=== PATIENT | male | born 1985 | race Caucasian/White ===

== ENCOUNTER 2019-06-02 13:44 | Emergency (ER) | payer SELFPAY ==
[2019-06-02 13:45] VITALS: BP 112/68; PULSE 77; RESP 16; TEMP 36.8; O2SAT 98; BMI 20.7
--- NOTE | 2019-06-02 13:58 | RAD_ITS ---
STUDY: X-RAY - LEFT HAND REASON FOR EXAM: Male, 34 years old. Left hand pain, infection. TECHNIQUE: 3 view(s) of the hand. COMPARISON: None. FINDINGS: Normal osseous structures. There appears to be mild dorsal lateral hand soft tissue swelling. Clinically correlate. RAD/Hand Min 3 Views IMPRESSION: No acute osseous process. Suspected dorsal lateral hand soft tissue swelling. No deep soft tissue gas or radiodense foreign body. No evidence of osteomyelitis. Electronically Signed: Anibal Up MD at 14:20 EDT Tel , Service support ,
--- NOTE | 2019-06-02 15:58 | ED.VIS.UPPEX ---
History of Present Illness Chief Complaint: Upper Extremity Injury Narrative: Patient presenting secondary to pain in his left index finger. Patient reports over the course of the last couple weeks he has had increasing pain and swelling in the tip of his left index finger. He reports that this was associated with a couple of blunt injuries, and now was associated with throbbing continuous pain that is worse with any sort of palpation. He denies any presence of fevers. Pain is been refractory to treatment with ibuprofen. Review of systems otherwise negative. Past Medical History - Allergies and Home Meds Allergies/Adverse Reactions: Allergies Sulfa (Sulfonamide Antibiotics) Allergy (Verified 06/02/19 13:47) Itching Primary Care Physician: Porfirio Rod MD [STAFF PHYSICIAN] - As soon as possible Smoking Status: Current every day smoker Review of Systems All systems negative except as indicated General: Denies: Fever Musculoskeletal: Reports: - - Left index finger pain Hematologic: Denies: Easy bruising, Easy bleeding Physical Exam Vital Signs/Narrative: Vital Signs Temp Pulse Resp BP Pulse Ox 06/02/19 13:45 98.3 F 77 16 112/68 98 Left Finger: - - Exam of the patient's left hand shows left index finger with some evidence of swelling of the pulp of the distal phalanx. There is fluctuance over the very tip of the finger. No evidence of overlying cellulitis or lymphangitic streaking. Normal range of motion of the finger. Diagnostic/Tx/Re-eval - Medical Decision Making Patient presented secondary to swelling of the finger. Physical exam seem consistent with a felon. X-ray was obtained which was negative. Patient's felon was incised and drained as noted in the procedure note. Patient will follow-up with plastic surgery. Patient was placed on clindamycin due to a sulfa allergy. Procedures Procedure(s): Patient's finger was anesthetized using 5 cc of bupivacaine via a digital block. Good anesthesia was obtained. Finger was then prepped with Betadine, and was draped in a sterile fashion. Sterile gloves were utilized. An 11 blade was used to incise the very tip of the finger, and some purulence was expressed. Then the ulnar side of the index finger was incised, and blunt dissection was used to dissect across the pulp of the finger. The incisions were irrigated copiously. Packing was placed in the tip of the finger. Nonstick Adaptic was placed over top of the tip of the finger, and then a bulky absorbent dressing was placed over top. Patient tolerated this well. Disposition: Home ED Disposition - Plan for ED Patient: Disposition: Home or Assisted Living Diagnosis: Felon of finger of left hand Instructions: ABSCESS, Incision and Drainage Prescriptions: Clindamycin [Cleocin] 300 mg PO 4X/DAY #80 cap Prescription Printed Referrals: Porfirio Rod MD [STAFF PHYSICIAN] - As soon as possible
[2019-06-02] MEDS: Clindamycin HCl 150 MG Capsule 300 MG PO (16:23)
[2019-06-02] MEDS: Bupivacaine Mpf 0.5% 30 ML VIAL INFILT (16:24)
[2019-06-02 16:27] VITALS: BP 121/71; PULSE 81; RESP 16; O2SAT 99
== END 2019-06-02 16:30 | disposition home or self-care (01) ==
PROVIDERS: Emergency Provider Emergency Medicine
DX: L03.012 Cellulitis of left finger (principal); Z88.2 Allergy status to sulfonamides; F17.200 Nicotine dependence, unspecified, uncomplicated
CPT/HCPCS: 26011; 73130; 99283

== ENCOUNTER 2022-06-20 07:02 | Emergency (ER) | payer SELFPAY ==
[2022-06-20 07:03] VITALS: BP 117/66; PULSE 83; RESP 16; TEMP 36.9; O2SAT 99
--- NOTE | 2022-06-20 07:10 | RAD_ITS ---
EXAM: XR CHEST, 1 VIEW CLINICAL INDICATION: COLD SYMPTOMS TECHNIQUE: Frontal view of the chest. This report was created using [employer] report generation technology. COMPARISON: None. FINDINGS: LUNGS AND PLEURAL SPACES: Unremarkable with the exception of incidentally noted azygos lobe at the superior medial right lung. No consolidation or edema. No pneumothorax. No effusion. HEART: Unremarkable. Cardiac silhouette not enlarged. MEDIASTINUM: Central airways and mediastinal contour are unremarkable. BONES/JOINTS: Unremarkable. SOFT TISSUES: Unremarkable. RAD/Chest 1 View (Portable) IMPRESSION: No radiographic evidence of acute cardiopulmonary disease. Electronically Signed: Rachel Tanner MD at 7:29 EDT ,
--- NOTE | 2022-06-20 07:23 | EX.ED.DYSGE1 ---
HPI History of Present Illness Chief Complaint: Cold Sx Informant: patient Narrative Narrative: Patient is a 37-year-old male that denies any past medical history presenting with COVID-like symptoms and concern for COVID infection. Patient was at a music festival this past weekend and last night developed sweats, nausea, myalgias, headache, restlessness, vomiting and diarrhea. Has been drinking fluids at home. Did not take anything [id number] for symptoms. Is concerned he might have COVID and came to the emergency room for further evaluation. Also notes since being at a music festival and on his feet for 3 days his ankles have been sore. He is worried he is may be has poor circulation in his feet. PFSH PFSH Home Medications clindamycin HCl 150 mg capsule 300 mg PO 4X/DAY #80 caps 06/02/19 [Rx Last Taken Unknown] cephalexin 500 mg capsule (Keflex) 500 mg PO .qid #40 caps 06/05/19 [Rx Last Taken Unknown] ibuprofen 600 mg tablet 600 mg PO Q6H PRN PRN fever or pain #20 tabs 06/20/22 [Rx Last Taken Unknown] ondansetron 4 mg disintegrating tablet 4 mg PO Q6H PRN nausea and vomiting #14 tabs 06/20/22 [Rx Last Taken Unknown] Allergy/AdvReac Type Severity Reaction Status Date / Time Sulfa (Sulfonamide Allergy Itching Verified 06/02/19 13:47 Antibiotics) Social History Smoking Status: Current every day smoker tobacco type: cigarettes ROS ROS ED Constitutional Constitutional ED: Reports chills and sweats; Denies fever(s) Eyes Eyes: Denies blurry vision ENT ENT ED: Reports ear pain, sore throat and other Details: nasal congestion ; Denies rhinorrhea Cardiovascular Cardiovascular: Denies chest pain or palpitations Respiratory/Chest Respiratory/Chest: Reports cough; Denies dyspnea Gastrointestinal Gastrointestinal: Reports diarrhea, nausea and vomiting; Denies abdominal pain Genitourinary Genitourinary ED: Denies dysuria or hematuria Musculoskeletal Musculoskeletal: Reports arthralgias and myalgias; Denies neck pain Integumentary Denies rash Neurologic Neurologic: Reports headache(s); Denies paresthesias or weakness Psychiatric Psychiatric: Denies anxiety EXAM Physical Exam Const Vital Signs: 06/20/22 07:03 06/20/22 07:31 Temperature 98.5 F Temperature Source Oral Pulse Rate 83 Respiratory Rate 16 Respiratory Effort Normal Blood Pressure 117/66 Blood Pressure Mean 83 Pulse Ox 99 Oxygen Delivery Method Room Air Room Air Positive well nourished and well developed General Appearance ED: well developed and NAD HEENT Reports TM's clear and moist mucous membranes HEENT Narrative: Normal oropharynx. Uvula midline. Normal nasal mucosa Tympanic Membrane ED: Yes TM's clear Eyes PERRL and EOMs intact bilaterally Neck no lymphadenopathy and supple Neck Narrative: No meningeal signs Chest Wall inspection of chest normal Resp normal respiratory effort Resp Narrative: Scattered rhonchi in the left upper lobe Cardio regular rate, regular rhythm and no murmurs Cardio Narrative: 2+ radial DP pulses. Brisk capillary refill of the toes. GI normal to inspection, nondistended, normoactive bowel sounds and non-tender Back/Spine no CVA tenderness Extremity normal to inspection General Extremety ED: Negative for edema or tenderness General Extremity: Negative for edema Neuro oriented x3 Neuro Narrative: No focal deficits appreciated Motor Exam: strength 5/5 throughout Psych mental status grossly normal Skin no rashes or lesions noted and no wounds Skin Narrative: Peeling skin on the forehead and scalp consistent with a healing sunburn General Skin Exam: Negative for jaundice MDM MDM MDM Narrative Medical decision making narrative: Patient evaluated for 1 day of COVID-like symptoms. He has had myalgias, chills, headache, cough, nausea and vomiting. He is hemodynamically stable. Overall he looks like he does not feel good but is well-appearing. No meningeal signs. Abdomen is soft and nontender. Does not have associate abdominal pain. I do not think further blood work or work-up is indicated. Chest x-ray interpreted by myself as well as radiology is negative for any acute process. Rapid COVID is negative. Patient counseled that given the short onset of his symptoms he could have a false negative. Is encouraged to take a home test in 2 to 3 days if continuing to be symptomatic. Patient is not a candidate for Paxlovid so I do not think a PCR is indicated at this time. He is given Zofran and Tylenol in the emergency room. Given a prescription for Motrin 600 mg as well as Zofran. Counseled on fluid intake. Given a work note. Discharged home in stable condition. Radiography Diagnostic Testing: Clinical Impression(s) from Imaging Studies Chest X-Ray 06/20/22 07:10 IMPRESSION: No radiographic evidence of acute cardiopulmonary disease. Electronically Signed: Rachel Tanner MD at 7:29 EDT Reading Location ID and State: [facility] / [place] Tel , Service support , Discharge Plan Triage Chief Complaint: Cold Sx ED Provider: Cherelle Caldera Dx/Rx/DC Orders Clinical Impression: Viral illness, Encounter for screening for COVID-19 Instructions: ED Viral Syndrome (Adult) Prescriptions: New ondansetron 4 mg tablet,disintegrating 4 mg PO Q6H PRN (Reason: nausea and vomiting) Qty: 14 0RF ibuprofen 600 mg tablet 600 mg PO Q6H PRN PRN (Reason: fever or pain) Qty: 20 0RF No Action cephalexin [Keflex] 500 mg capsule 500 mg PO .qid Qty: 40 0RF clindamycin HCl 150 MG capsule 300 mg PO 4X/DAY Qty: 80 0RF Primary Care Provider: Care Physician,No Primary Referrals: Libia Deluna MD [STAFF PHYSICIAN] - Care Physician,No Primary [Primary Care Provider] - Activity Restrictions/Additional Instructions: Your COVID test was negative. Given the sudden onset of symptoms is possible this is a false negative. If you still have symptoms and 2 to 3 days take a repeat home test. Return if you have further concerns of dehydration or failure getting worse. Try to drink lots of fluids and rest. Disposition Disposition: Home, Self Care
[2022-06-20] MEDS: Acetaminophen 325 MG Tablet 650 MG PO (07:30)
[2022-06-20] MEDS: Ondansetron ODT 4 MG Tablet PO (07:30)
[2022-06-20 07:31] VITALS: O2SAT 98
[2022-06-20 07:51] VITALS: BP 109/72; PULSE 66; RESP 15; O2SAT 99
== END 2022-06-20 07:52 | disposition home or self-care (01) ==
PROVIDERS: Emergency Provider Emergency Medicine; Visit Provider Emergency Medicine
DX: B34.9 Viral infection, unspecified (principal); R51.9 Headache, unspecified; F17.210 Nicotine dependence, cigarettes, uncomplicated; R68.83 Chills (without fever); M79.10 Myalgia, unspecified site; R05.9 Cough, unspecified
CPT/HCPCS: 71045; 87811; 99283

== ENCOUNTER 2025-07-15 20:47 | Emergency (ER) | payer BC, SELFPAY ==
[2025-07-15 20:48] VITALS: BP 144/100; PULSE 70; RESP 16; TEMP 36.9; O2SAT 100; BMI 21.0
--- NOTE | 2025-07-15 21:02 | CT_ITS ---
PROCEDURE: CTA ABD/PELVIS W/WO CONTRAST 07/15/2025 REASON FOR EXAM: ABDOMINAL PAIN, RECTAL BLEEDING TECHNIQUE: CTA ABD/PELVIS W/WO CONTRAST Multiplanar Sagittal and Coronal images were obtained. CONTRAST: Isovue 370 VOLUME: 100 mL One or more dose reduction techniques were used (e.g., Automated exposure control, adjustment of the mA and/or kV according to patient size, use of iterative reconstruction technique). RADIATION DOSE SUMMARY: CTDlvol: 37 mGy DLP: 385 mGycm COMPARISON: No FINDINGS: Dependent atelectasis. Normal heart size. Hepatomegaly, possible medical liver disease. Possible portal venous hypertension. Normal gallbladder, pancreas, spleen, adrenal glands, kidneys. Hydronephrosis. Normal bladder. Normal prostate. No retroperitoneal or pelvic adenopathy. Nondistended bowel. Normal appendix. Multiple jejunal loops show possible true wall thickening. Distal small bowel hypomotility. No acute large bowel findings. No acute abdominal wall findings. L5-S1 degeneration. The aortoiliac system is unremarkable. There is mild extrinsic compression, of proximal celiac artery, series 602, image 25, with poststenotic dilatation. No aneurysm, dissection, or high-grade stenosis. CT/CTA Abd/Pelvis W/WO Contrast IMPRESSION: Medical liver disease. No acute vascular pathology. Possible median arcuate ligament syndrome. Advise correlation. Possible enteritis such as secondary to infection. Reading Location: [place] [id number]
--- NOTE | 2025-07-15 21:12 | EX.ED.DYSGE1 ---
HPI <JOANNA Desir - Last Filed: 07/15/25 21:37> History of Present Illness Chief Complaint: GI Bleed Narrative Narrative: 40-year-old male with no past medical history presents with a GI bleed. He states on 07/06 (about 9 days ago) he had a bowel movement and there was dark red blood in the toilet bowl and when he wiped it looked black. Since then he has had abdominal bloating which feels worse on the left. He states is not overt pain but more feeling of gas that he needs to burp or fart. He tried to make lifestyle changes by stopping ibuprofen which he uses often for poor dentition. Today he had 3 episodes of diarrhea which looked brown but there was bright red blood in the toilet bowl. He denies fever, chills, nausea or vomiting. No history of GI bleed. He is not on blood thinners. He takes no medications. He smokes weed and drinks half 1/5 of liquor daily. PFSH <JOANNA Desir - Last Filed: 07/15/25 21:37> [facility] Home Medications ?Medication ?Instructions ?Recorded ?Last Taken ?Type clindamycin HCl 150 mg capsule 300 mg (2 x 150 mg) PO 4X/DAY #80 06/02/19 Unknown Rx caps cephalexin 500 mg capsule (Keflex) 500 mg PO .qid #40 caps 06/05/19 Unknown Rx ibuprofen 600 mg tablet 600 mg PO Q6H PRN PRN fever or 06/20/22 Unknown Rx pain #20 tabs ondansetron 4 mg disintegrating 4 mg PO Q6H PRN nausea and 06/20/22 Unknown Rx tablet vomiting #14 tabs pantoprazole 40 mg tablet,delayed 40 mg PO DAILY #30 tabs 07/15/25 Unknown Rx release Allergy/AdvReac Type Severity Reaction Status Date / Time Sulfa (Sulfonamide Allergy Itching Verified 07/15/25 20:48 Antibiotics) Family History (Updated 07/15/25 @ 21:22 by Carson Tanner) Other Cancer Surgical History (Updated 07/15/25 @ 21:21 by Carson Tanner) History of placement of ear tubes Surgical History no surgical history Social History Smoking Status: Current every day smoker tobacco type: e-cigarettes ROS <JOANNA Desir - Last Filed: 07/15/25 21:37> ROS ED ROS Narrative Constitutional: Negative for fever, chills, malaise. GI: Positive for abdominal pain, diarrhea, rectal bleeding. Negative for nausea, vomiting. : Negative for dysuria. EXAM <JOANNA Desir - Last Filed: 07/15/25 21:37> Physical Exam Narrative Exam Narrative: CONST: Patient sitting in no acute distress. EYES: Normal inspection. NECK: Normal inspection. RESP: No respiratory distress, CTAB. CVS: Regular rate and rhythm, no murmur, no gallop. ABD: Soft with mild left mid and lower abdominal discomfort, mild distention, no guarding or rebound. SYED: No external hemorrhoids or fissures noted. SKIN: Color normal, no rash, warm, dry, intact. EXTREMITIES: Normal appearance, no pedal edema. NEURO: Alert and answering questions appropriately. PSYCH: Normal affect. Const Vital Signs: 07/15/25 20:48 07/15/25 22:54 Temperature 98.5 F 98.5 F Temperature Source Oral Pulse Rate 70 70 Respiratory Rate 16 16 Blood Pressure 144/100 H 144/100 H Blood Pressure Mean 114 114 Pulse Ox 100 100 <Dr. Jimmy Duncan, DO - Last Filed: 07/16/25 00:23> Physical Exam Const Vital Signs: 07/15/25 20:48 07/15/25 22:54 Temperature 98.5 F 98.5 F Temperature Source Oral Pulse Rate 70 70 Respiratory Rate 16 16 Blood Pressure 144/100 H 144/100 H Blood Pressure Mean 114 114 Pulse Ox 100 100 MDM <JOANNA Desir - Last Filed: 07/15/25 21:37> [facility] Narrative Medical decision making narrative: -year-old male presents with recent abdominal bloating and bright red rectal bleeding. 1 episode of melena 9 days ago. He has discontinued NSAIDs but still drinks liquor daily. No history of GI bleed. No blood thinners. He is awake alert no distress. Vital stable. Normal cardiopulmonary Dhruv. Abdomen soft with mild left mid to lower abdominal tenderness but no peritoneal signs. On rectal exam he has no fissures or external hemorrhoids. I did not do a Hemoccult since he is reporting bright red blood. He was given IV Protonix bolus while blood work and CT scan are obtained. Lab Data Labs: Laboratory Results - last 24 hr 07/15/25 21:17 WBC 7.1 RBC 3.79 L Hgb 12.6 L Hct 36.6 L MCV 96.6 H MCH 33.2 H MCHC 34.4 RDW Std Deviation 45.4 H RDW Coeff of Rupert 12.8 Plt Count 186 MPV 10.8 Immature Gran % (Auto) 0.100 Neut % (Auto) 56.7 Lymph % (Auto) 30.1 [place] % (Auto) 9.6 Eos % (Auto) 2.6 Baso % (Auto) 0.9 Absolute Neuts (auto) 4.0 Absolute Lymphs (auto) 2.12 Nucleated RBC % 0 Sodium 143 Potassium 3.8 Chloride 105 Carbon Dioxide 24.4 Anion Gap 13 BUN 13 Creatinine 0.85 Estim Creat Clear Calc 108.73 Est GFR (MDRD) Non-Af 113 BUN/Creatinine Ratio 15.8 Glucose 91 Calcium 9.3 Total Bilirubin 0.25 AST 22 ALT 15 Alkaline Phosphatase 65 Total Protein 6.9 Albumin 4.4 Globulin 2.5 Albumin/Globulin Ratio 1.7 Radiography Diagnostic Testing: Clinical Impression(s) from Imaging Studies Abdomen/Pelvis CTA 07/15/25 21:02 IMPRESSION: Medical liver disease. No acute vascular pathology. Possible median arcuate ligament syndrome. Advise correlation. Possible enteritis such as secondary to infection. Reading Location: [facility] <Dr. Jimmy Duncan, DO - Last Filed: 07/16/25 00:23> [facility] Lab Data Labs: Laboratory Results - last 24 hr 07/15/25 21:17 WBC 7.1 RBC 3.79 L Hgb 12.6 L Hct 36.6 L MCV 96.6 H MCH 33.2 H MCHC 34.4 RDW Std Deviation 45.4 H RDW Coeff of Rupert 12.8 Plt Count 186 MPV 10.8 Immature Gran % (Auto) 0.100 Neut % (Auto) 56.7 Lymph % (Auto) 30.1 [place] % (Auto) 9.6 Eos % (Auto) 2.6 Baso % (Auto) 0.9 Absolute Neuts (auto) 4.0 Absolute Lymphs (auto) 2.12 Nucleated RBC % 0 Sodium 143 Potassium 3.8 Chloride 105 Carbon Dioxide 24.4 Anion Gap 13 BUN 13 Creatinine 0.85 Estim Creat Clear Calc 108.73 Est GFR (MDRD) Non-Af 113 BUN/Creatinine Ratio 15.8 Glucose 91 Calcium 9.3 Total Bilirubin 0.25 AST 22 ALT 15 Alkaline Phosphatase 65 Total Protein 6.9 Albumin 4.4 Globulin 2.5 Albumin/Globulin Ratio 1.7 Radiography Diagnostic Testing: Clinical Impression(s) from Imaging Studies Abdomen/Pelvis CTA 07/15/25 21:02 IMPRESSION: Medical liver disease. No acute vascular pathology. Possible median arcuate ligament syndrome. Advise correlation. Possible enteritis such as secondary to infection. Reading Location: [facility] Treatment and Re-Evaluation :: Attending note: I have personally performed a face to face assessment of the patient and have reviewed the GUILLERMO note. I personally made/approved the management plan and take responsibility for the patient management. I performed a substantive portion of the visit including all aspects of the following. My gonzalez findings include: Daily alcohol use for past 2 years. 9 days ago had black stools for 1 day. 2 days ago black and red stools. Today had 3 diarrhea loose stools with bright red blood no clots. Since abdominal pain. No fevers. No vomiting. No abdominal surgeries. No history of upper or lower endoscopies. Exam nonsurgical abdomen. No clinical pallor. Labs were ordered including CT angiogram. Hemoglobin trend 12.6. Normal bilirubin. Electrolytes were normal. Creatinine 0.85. CT angiogram hepatomegaly with signs of portal hypertension. No varices no active bleeding. He had no bloody stools in the ED. Given Protonix he will be continued on a PPI. He is referred to GI. Return precaution discussed. All questions were answered. Discharge Plan Triage Chief Complaint: GI Bleed ED Midlevel Provider: Leela Woodruff ED Provider: Jimmy Duncan Dx/Rx/DC Orders Clinical Impression: Rectal bleed, Alcohol dependence, Gastritis Instructions: Rectal Bleeding Tx, Alcoholism Resources, ED Gastritis (Adult) Prescriptions: New pantoprazole 40 mg tablet,delayed release (DR/EC) 40 mg PO DAILY Qty: 30 0RF No Action cephalexin [Keflex] 500 mg capsule 500 mg PO .qid Qty: 40 0RF clindamycin HCl 150 MG capsule 300 mg PO 4X/DAY Qty: 80 0RF ondansetron 4 mg tablet,disintegrating 4 mg PO Q6H PRN (Reason: nausea and vomiting) Qty: 14 0RF ibuprofen 600 mg tablet 600 mg PO Q6H PRN PRN (Reason: fever or pain) Qty: 20 0RF Primary Care Provider: Care Physician,No Primary Referrals: Friend,Gary, [Med Staff - Active Staff] - 1 Week Care Physician,No Primary [Primary Care Provider] - Activity Restrictions/Additional Instructions: Your CT angiogram no signs of active bleeding. You have a large liver. You have signs of portal hypertension. Hemoglobin is 12.6. Take pantoprazole as prescribed. Try to avoid alcohol use. Continue to avoid ibuprofen use. Follow-up with Dr. Redding. Print Language: Kosovan Disposition Disposition: Home, Self Care Discharge Date/Time: 07/15/25 22:54
--- NOTE | 2025-07-15 21:31 | ED.RN ---
Pt reports not taking any medications
[2025-07-15 21:44] LABS: Hematocrit 36.6 % (40-54); Hemoglobin 12.6 g/dL (13.0-16.5); Immature Granulocytes Count 0.010 X10^3/uL (0.0-0.0); Mean Corp Hgb Conc 34.4 g/dL (32-36); Mean Corpuscular Volume 96.6 fL (80-94); Mean Platelet Vol. 10.8 fl (6.2-12.0); NRBC Flagged by Analyzer 0 % (0-5); Platelet Count 186 K/mm3 (150-450); RBC Distribution Width CV 12.8 % (11.6-14.6); RBC Distribution Width SD 45.4 fl (35.1-43.9); Red Blood Count 3.79 M/mm3 (4.6-6.2); White Blood Count 7.1 K/mm3 (4.4-11.0)
--- OUTSIDE RECORDS SUMMARY | 2025-07-15 21:51 | XMS RPT_ITS | CCD ---
Author Organization [facility] [employer]ACH [employer] EDUCATION [employer] WORK[employer] [facility] Allergies Allergy Classification Reported Allergen(s) Allergy Type Date of Onset Reaction(s) Facility (1 source) Sulfonamides (Antibiotic) Allergy to substance 06-02-2019 Itching [facility] Work Phone: Medications Current Medications Medication Drug Class(es) Dates Sig (Normalized) Sig (Original) cephalexin 500 mg oral capsule (1 source) Cephalosporin Antibacterial Start: 06-05-2019 take 1 capsule by mouth four times daily Cephalexin (Keflex) 500 mg capsule Active 500 MG PO .qid 40 June 05, 2019 12:00am clindamycin 150 mg oral capsule (1 source) Lincosamide Antibacterial Start: 06-02-2019 take 300 mg by mouth four times daily Clindamycin Hcl Active 300 MG PO 4 TIMES DAILY June 02, 2019 12:00am ibuprofen 600 mg oral tablet (1 source) Nonsteroidal Anti-inflammatory Drug Start: 06-20-2022 take 600 mg by mouth every six hours as needed Ibuprofen Active 600 MG PO EVERY 6 HOURS NEEDED June 20, 2022 12:00am ondansetron 4 mg disintegrating oral tablet (1 source) Serotonin-3 Receptor Antagonist Start: 06-20-2022 take 4 mg by mouth every six hours Ondansetron Active 4 MG PO EVERY 6 HOURS June 20, 2022 12:00am Problems Problem Classification Problem Date Documented Da te Episodic/Chronic Immunizations and screening for infectious disease (1 source) Patient encounter status; Translations: [Encounter for screening for COVID-19] Episodic Skin and subcutaneous tissue infections (2 sources) Infection of finger; Translations: [Cellulitis of left finger] Episodic Viral infection (1 source) Viral disease; Translations: [Viral infection, unspecified] Episodic Results Test Name Value Interpretation Reference Range Facil ity COVID 19 AG RAPID (MOISES Walton)on 06-20-2022 SARS-CoV-2 (COVID-19) RNA STALIN+probe Ql (Unsp spec) *Negative results from patients with symptom onset beyond five days should be treated as presumptive and confirmed by a molecular assay if clinically necessary. Negative results should not be used as the sole basis for treatment or for patient management. SARS-CoV-2 Ag Resp Ql IA.rapid *Positive results do not differentiate between SARS-CoV and SARS-CoV-2. If differentiation of the specific SARS virus is desired an additional sample and an additional order is required. SARS-CoV-2 Ag Resp Ql IA.rapid * This test has not been FDA cleared or approved; the test has been authorized by FDA under an Emergency Use Authorization (EAU) for use by laboratories certified under CLIA that meet the requirements to perform moderate, high, or waived complexity tests. SARS-CoV-2 Ag Resp Ql IA.rapid Normal Reference Range: Negative SARS-CoV-2 (COVID 19) Negative RAPID METHOD [facility] COVID19 Ag Card Normal [facility] Comment on above: Performed By: #### M [id number] #### [facility] [address] [place], [address] Chest 1 View (Portable)on Chest 1 View (Portable) [facility] Imaging Services [address] [place] [address] Chest 1 View (Portable) MR#: [id number] Acct: [id number] Name: MAG LYMAN Star Rep #: [id number] : 1985 M 37 From: Rachel Tanner MD PCP: Care Physician,No Primary Status: PRE ER Study: Chest 1 View (Portable) Date of Exam: 06/20/22 Exam# [id number] Ordering Dr: Provider,Ed P. EXAM: XR CHEST, 1 VIEW CLINICAL INDICATION: COLD SYMPTOMS TECHNIQUE: Frontal view of the chest. This report was created using [employer] (?) report generation technology. COMPARISON: None. FINDINGS: LUNGS AND PLEURAL SPACES: Unremarkable with the exception of incidentally noted azygos lobe at the superior medial right lung. No consolidation or edema. No pneumothorax. No effusion. HEART: Unremarkable. Cardiac silhouette not enlarged. MEDIASTINUM: Central airways and mediastinal contour are unremarkable. BONES/JOINTS: Unremarkable. SOFT TISSUES: Unremarkable. RAD/Chest 1 View (Portable) IMPRESSION: No radiographic evidence of acute cardiopulmonary disease. Electronically Signed: Rachel Tanner MD at 7:29 EDT , CC: ED PHYSICIAN PROVIDER; No Primary Care Physician Last Putter Away: Signed Normal [facility] Emergency Department Summary on 06-20-2022 Emergency Department Summary [facility] Medical Records Department [address] [place] [address] Emergency Department Summary 06/20/22 MR#: [id number] Acct: [id number] Name: MAG LYMAN Rep #: [id number] : 1985 37 From: Cherelle Caldera DO PCP: Care Physician,No Primary Status:REG ER Location: ED HPI History of Present Illness Chief Complaint: Cold Sx Informant: patient Narrative Narrative: Patient is a 37-year-old male that denies any past medical history presenting with COVID-like symptoms and concern for COVID infection. Patient was at a music festival this past weekend and last night developed sweats, nausea, myalgias, headache, restlessness, vomiting and diarrhea. Has been drinking fluids at home. Did not take anything [id number] for symptoms. Is concerned he might have COVID and came to the emergency room for further evaluation. Also notes since being at a music festival and on his feet for 3 days his ankles have been sore. He is worried he is may be has poor circulation in his feet. PFSH PFS Home Medications clindamycin HCl 150 mg capsule 300 mg PO 4X/DAY #80 caps 06/02/19 [Rx Last Taken Unknown] cephalexin 500 mg capsule (Keflex) 500 mg PO .qid #40 caps 06/05/19 [Rx Last Taken Unknown] ibuprofen 600 mg tablet 600 mg PO Q6H PRN PRN fever or pain #20 tabs 06/20/22 [Rx Last Taken Unknown] ondansetron 4 mg disintegrating tablet 4 mg PO Q6H PRN nausea and vomiting #14 tabs 06/20/22 [Rx Last Taken Unknown] Allergy/AdvReac Type Severity Reaction Status Date / Time Sulfa (Sulfonamide Allergy Itching Verified 06/02/19 13:47 Antibiotics) Social History Smoking Status: Current every day smoker tobacco type: cigarettes ROS ROS ED Constitutional Constitutional ED: Reports chills and sweats; Denies fever(s) Eyes Eyes: Denies blurry vision ENT ENT ED: Reports ear pain, sore throat and other Details: nasal congestion ; Denies rhinorrhea Cardiovascular Cardiovascular: Denies chest pain or palpitations Respiratory/Chest Respiratory/Chest: Reports cough; Denies dyspnea Gastrointestinal Gastrointestinal: Reports diarrhea, nausea and vomiting; Denies abdominal pain Genitourinary Genitourinary ED: Denies dysuria or hematuria Musculoskeletal Musculoskeletal: Reports arthralgias and myalgias; Denies neck pain Integumentary Denies rash Neurologic Neurologic: Reports headache(s); Denies paresthesias or weakness Psychiatric Psychiatric: Denies anxiety EXAM Physical Exam Const Vital Signs: 06/20/22 07:03 06/20/22 07:31 Temperature 98.5 F Temperature Source Oral Pulse Rate 83 Respiratory Rate 16 Respiratory Effort Normal Blood Pressure 117/66 Blood Pressure Mean 83 Pulse Ox 99 Oxygen Delivery Method Room Air Room Air Positive well nourished and well developed General Appearance ED: well developed and NAD HEENT Reports TM's clear and moist mucous membranes HEENT Narrative: Normal oropharynx. Uvula midline. Normal nasal mucosa Tympanic Membrane ED: Yes TM's clear Eyes PERRL and EOMs intact bilaterally Neck no lymphadenopathy and supple Neck Narrative: No meningeal signs Chest Wall inspection of chest normal Resp normal respiratory effort Resp Narrative: Scattered rhonchi in the left upper lobe Cardio regular rate, regular rhythm and no murmurs Cardio Narrative: 2+ radial DP pulses. Brisk capillary refill of the toes. GI normal to inspection, nondistended, normoactive bowel sounds and non-tender Back/Spine no CVA tenderness Extremity normal to inspection General Extremety ED: Negative for edema or tenderness General Extremity: Negative for edema Neuro oriented x3 Neuro Narrative: No focal deficits appreciated Motor Exam: strength 5/5 throughout Psych mental status grossly normal Skin no rashes or lesions noted and no wounds Skin Narrative: Peeling skin on the forehead and scalp consistent with a healing sunburn General Skin Exam: Negative for jaundice MDM MDM MDM Narrative Medical decision making narrative: Patient evaluated for 1 day of COVID-like symptoms. He has had myalgias, chills, headache, cough, nausea and vomiting. He is hemodynamically stable. Overall he looks like he does not feel good but is well-appearing. No meningeal signs. Abdomen is soft and nontender. Does not have associate abdominal pain. I do not think further blood work or work-up is indicated. Chest x-ray interpreted by myself as well as radiology is negative for any acute process. Rapid COVID is negative. Patient counseled that given the short onset of his symptoms he could have a false negative. Is encouraged to take a home test in 2 to 3 days if continuing to be symptomatic. Patient is not a candidate for Paxlovid so I do not think a PCR is (more content not included)... Normal [facility] Vital Signs Date Time Vital Sign Value Performing Clinician Rebai laci 06-20-2022 07:51-0400 Diastolic blood pressure 72 mm[Hg] [facility] Work Phone: 06-20-2022 07:51-0400 Heart rate 66 /min [facility] Work Phone: 06-20-2022 07:51-0400 Respiratory rate 15 /min [facility] Work Phone: 06-20-2022 07:51-0400 SaO2% (BldA) [Mass fraction] 99 % [facility] Work Phone: 06-20-2022 07:51-0400 Systolic blood pressure 109 mm[Hg] [facility] Work Phone: 06-20-2022 07:03-0400 Body height 177.8 cm [facility] Work Phone: 06-20-2022 07:03-0400 Body mass index (BMI) [Ratio] 20 kg/m2 [facility] Work Phone: 06-20-2022 07:03-0400 Body temperature 98.5 [degF] [facility] Work Phone: 06-20-2022 07:03-0400 Body weight 63.5 kg [facility] Work Phone: Encounters Encounter Date Encounter Type Care Provider Facility Start: 06-20-2022 End: 06-20-2022 Emergency department patient visit [facility]-Emergency Department Procedures Date Procedure Procedure Detail Performing Clinician Start: 06-20-2022 Plain chest X-ray Viral antigen assay Plan of Treatment Date Care Activity Detail Author Start: 06-20-2022 [facility] Work Phone: Patient Education ED Viral Syndr ome (Adult) [facility] Work Phone: Patient referral [facility] Work Phone: Payers Date Payer Category Payer Policy ID Self-pay SELF PAY INSURANCE [id number] Social History Date Type Detail Facility Start: 06-20-2022 Tobacco smoking stat us NCIS Unknown if ever smoked [facility] Work Phone: Start: 1985 Sex Assigned At Male [facility] Work Phone: Hospital Discharge instructions 06-20-2022 Note Date & Type Note Facility 06-20-2022 Hospital Discharg e instructions Additional Instructions Your COVID test was negative. Given the sudden onset of symptoms is possible this is a false negative. If you still have symptoms and 2 to 3 days take a repeat home test. Return if you have further concerns of dehydration or failure getting worse. Try to drink lots of fluids and rest. [facility] Work Phone: Evaluation note Note Date & Type Note Facility Evaluation note No assessment information availa ble [facility] Work Phone: Chief Complaint and Reason for Visit Chief Complaint COLD SYMPTOMS Advance Directives No Advanced Directives Records Found Advance Directive Response Recorded Date/ Time Living Will No June 20, 2022 7:31am Power of Crewman [employer] [id number] No June 20 7:31am Summary Purpose Family History No Family History Records Found Additional Source Comments Goals (unrecognized section and content) Goals may be documented in a n alternate section (unrecognized sect ion and content) No Status Records Found INFORMATION SOURCE (unrecogn ized section and content) DATE CREATED AUTHOR 07/06/2022 [facility] FOR RECORDS PERTAINING TO PATIENTS WHO ARE OR HAVE BEEN ENROLLED IN A CHEMICAL DEPENDENCY/SUBSTANCEABUSE PROGRAM, SOME INFORMATION MAY BE OMITTED. This clinical summary was aggregated from multiple sources. Caution should be exercised in using it in the provision of clinical care. This summary normalizes information from multiple sources, and as a consequence, information in this document may materially change the coding, format and clinical context of patient data. In addition, data may be omitted in some cases. CLINICAL DECISIONS SHOULD BE BASED ON THE PRIMARY CLINICAL RECORDS. [facility] [employer] [facility]. provides no warranty or guarantee of the accuracy or completeness of information in this document.
[2025-07-15] MEDS: Pantoprazole Sodium 80 MG in 0.9% Normal Saline (50mL Bag) 15 ML 420 MG IV BOLUS (21:56)
[2025-07-15 22:05] LABS: AST(SGOT) 22 U/L (<=37); Alanine Aminotransfer ALT/SGPT 15 U/L (<=46); Albumin, Serum 4.4 g/dL (3.5-5.0); Alkaline Phosphatase 65 U/L (40-129); Anion Gap 13 (5-15); BUN 13 mg/dL (4-19); BUN/Creat Ratio 15.8 RATIO (10-20); Calcium,Total 9.3 mg/dL (7.6-11.0); Carbon Dioxide 24.4 mmol/L (21.0-32.0); Chloride 105 mmol/L (98-108); Estimated Creatinine Clearance 108.73 ml/min (50-250); Globulin 2.5 g/dL (2.2-4.2); Glucose 91 mg/dL (70-99); Potassium 3.8 mmol/L (3.3-5.1)
[2025-07-15 22:54] VITALS: BP 144/100; PULSE 70; RESP 16; TEMP 36.9; O2SAT 100
== END 2025-07-15 22:54 | disposition home or self-care (01) ==
PROVIDERS: Physician Assistant; Emergency Provider Emergency Medicine; Visit Provider Emergency Medicine
DX: K29.71 Gastritis, unspecified, with bleeding (principal); F10.20 Alcohol dependence, uncomplicated; Y90.9 Presence of alcohol in blood, level not specified; F17.290 Nicotine dependence, other tobacco product, uncomplicated
CPT/HCPCS: 74174; 80053; 85025; 96360; 99283; Q9967; A4216

== ENCOUNTER → 2025-07-26 | Outpatient (CLI) | payer BC, SELFPAY ==
[2025-07-26 12:08] LABS: Hematocrit 40.4 % (40-54); Hemoglobin 13.5 g/dL (13.0-16.5); Immature Granulocytes Count 0.010 X10^3/uL (0.0-0.0); Mean Corp Hgb Conc 33.4 g/dL (32-36); Mean Corpuscular Volume 98.5 fL (80-94); Mean Platelet Vol. 10.7 fl (6.2-12.0); NRBC Flagged by Analyzer 0 % (0-5); Platelet Count 203 K/mm3 (150-450); RBC Distribution Width CV 13.1 % (11.6-14.6); RBC Distribution Width SD 47.4 fl (35.1-43.9); Red Blood Count 4.10 M/mm3 (4.6-6.2); White Blood Count 5.7 K/mm3 (4.4-11.0)
[2025-07-26 12:17] LABS: Prothrombin Time (Protime)PT. 12.6 SECONDS (11.7-14.9)
[2025-07-26 13:11] LABS: Hepatitis B Surface Antigen Nonreactive (Nonreactive); Hepatitis C Antibody Nonreactive (Nonreactive)
[2025-07-27 14:08] LABS: Immunoglobulin A 311 mg/dL (90-386)
== END | disposition home or self-care (01) ==
LOC: LAB 11:30
PROVIDERS: Referring Provider Nurse Practitioner Acute Care; Visit Provider Nurse Practitioner Acute Care
DX: R10.9 Unspecified abdominal pain (principal); R11.0 Nausea; R14.0 Abdominal distension (gaseous); R19.7 Diarrhea, unspecified; K92.1 Melena
CPT/HCPCS: 36415; 82784; 83516; 85025; 85610; 86704; 86706; 86708; 86803; 87340